=== PATIENT | male | born 1945 | race Caucasian/White ===

== ENCOUNTER 2019-07-01 12:45 | Emergency (ER) | payer MEDICARE, OTHER ==
[~2019-07-01] VITALS: Ht 172.7 cm; Wt 68.8 kg
[2019-07-01 12:55] VITALS: BP 102/63
--- NOTE | 2019-07-01 13:15 | RAD ---
CHEST AP ONLY History: Facial droop Comparison: None. Findings: Single view of the chest is submitted. There is prominent infiltrate of the mid to superior left hemithorax. There is emphysema. There is no dependent pleural fluid or pneumothorax. Cardiac silhouette is borderline in size. Impression: 1. There is prominent infiltrate of the mid to superior left hemithorax for which short-term follow-up after treatment within 1-2 months advised. There is emphysema. Electronically signed by: Laureano Combs MD (07/01/2019 1:12 PM) [facility]
--- NOTE | 2019-07-01 13:18 | RAD ---
CT CODE STROKE HEAD WO dated 07/01/2019 12:47 PM Indication: Facial droop... Comparison: No comparison is available. Technique: Contiguous axial imaging the head was performed from skull base to vertex. No contrast administered. One or more of the following individualized dose reduction techniques were utilized for this examination: 1. Automated exposure control 2. Adjustment of the mA and/or kV according to patient size 3. Use of iterative reconstruction technique One or more of the following individualized dose reduction techniques were utilized for this examination: 1. Automated exposure control 2. Adjustment of the mA and/or kV according to patient size 3. Use of iterative reconstruction technique Findings: Ventricles and sulci are moderately prominent for age. No midline shift or mass effect. Mild patchy low density in the deep/subcortical periventricular white matter and central evan. No hemorrhage or extra-axial collection. Posterior fossa otherwise unremarkable. No hyperdense vessels are seen. Complete opacification of the bilateral maxillary sinus and anterior ethmoid air cells on the right with complete opacification of the right frontal sinus. There is some high density within the opacified sinuses. No bone destruction. Mastoid air cells are clear. No apparent calvarial abnormality. IMPRESSION: 1. No evidence of acute intracranial hemorrhage or mass. 2. Mild chronic small vessel ischemic changes in the deep/subcortical periventricular white matter and central evan. Superimposed acute small vessel ischemia cannot be excluded. If indicated, MRI would better evaluate. 3. Paranasal sinus disease as described above. Results discussed with ER physician at approximately 1:14 PM on the day of the study. FOR INTERNAL CODING PURPOSES Critical result: Findings discussed with ER physician at 07/01/2019 1:14 PM. RESULT CODE: (C) results Electronically signed by: Gerald Parker MD (07/01/2019 1:15 PM) [facility] [place]
--- NOTE | 2019-07-01 13:26 | PHYS DOC ---
Adult General Chief Complaint Chief Complaint: NEURO SYMPTOMS/DEFICITS [facility] HPI 73-year-old male presents via EMS as a code stroke. His last known well was 11:50 AM. The patient started to have some right upper extremity weakness and some word finding difficulty. His noticed these changes. The patient tells me that he has had some intermittent right arm weakness over the last month. He thinks it comes and goes. His told EMS that she has been noticing some signs of possible early dementia. The patient is a longtime smoker. He denies history of stroke. Today he basically went outside to smoke a cigarette and while he was out there he began to feel weak. He went inside and sat down and that is when his noticed he was acting different. Patient denies feeling ill prior to this episode. Denies fever chills. Review of Systems Review of Systems Constitutional: Denies fever or chills [] Eyes: Denies change in visual acuity, redness, or eye pain [] HENT: Denies nasal congestion or sore throat [] Respiratory: Denies cough or shortness of breath [] Cardiovascular: No additional information not addressed in HPI [] GI: Denies abdominal pain, nausea, vomiting, bloody stools or diarrhea [] : Denies dysuria or hematuria [] Musculoskeletal: Denies back pain or joint pain [] Integument: Denies rash or skin lesions [] Neurologic: Denies headache or sensory changes. right arm weakness [] Endocrine: Denies polyuria or polydipsia [] All other systems were reviewed and found to be within normal limits, except as documented in this note. Physical Exam Physical Exam Constitutional: Well developed, well nourished, no acute distress, non-toxic appearance. [] HENT: Normocephalic, atraumatic, bilateral external ears normal, oropharynx moist, no oral exudates, nose normal. [] Eyes: PERRLA, EOMI, conjunctiva normal, no discharge. [] Neck: Normal range of motion, no tenderness, supple, no stridor. [] Cardiovascular: Heart rate regular rhythm, no murmur [] Lungs & Thorax: Bilateral breath sounds clear to auscultation [] Abdomen: Bowel sounds normal, soft, no tenderness, no masses, no pulsatile masses. [] Skin: Warm, dry, no erythema, no rash. [] Back: No tenderness, no CVA tenderness. [] Extremities: No tenderness, no cyanosis, no clubbing, ROM intact, no edema. [] Neurologic: Right upper extremity weakness, see NIHSS [] Psychologic: Affect normal, judgement normal, mood normal. [] Current Patient Data Lab Results Laboratory Tests Test 07/01/19 13:10 Glucose (Fingerstick) 144 mg/dL (70-99) H EKG EKG Irregular rhythm, rate 70, normal axis, no ST elevation or depression. A. fib. [] Radiology/Procedures Radiology/Procedures [] Impressions: CT CODE STROKE HEAD WO dated 07/01/2019 12:47 PM Indication: Facial droop... Comparison: No comparison is available. Technique: Contiguous axial imaging the head was performed from skull base to vertex. No contrast administered. One or more of the following individualized dose reduction techniques were utilized for this examination: 1. Automated exposure control 2. Adjustment of the mA and/or kV according to patient size 3. Use of iterative reconstruction technique One or more of the following individualized dose reduction techniques were utilized for this examination: 1. Automated exposure control 2. Adjustment of the mA and/or kV according to patient size 3. Use of iterative reconstruction technique Findings: Ventricles and sulci are moderately prominent for age. No midline shift or mass effect. Mild patchy low density in the deep/subcortical periventricular white matter and central evan. No hemorrhage or extra-axial collection. Posterior fossa otherwise unremarkable. No hyperdense vessels are seen. Complete opacification of the bilateral maxillary sinus and anterior ethmoid air cells on the right with complete opacification of the right frontal sinus. There is some high density within the opacified sinuses. No bone destruction. Mastoid air cells are clear. No apparent calvarial abnormality. IMPRESSION: 1. No evidence of acute intracranial hemorrhage or mass. 2. Mild chronic small vessel ischemic changes in the deep/subcortical periventricular white matter and central evan. Superimposed acute small vessel ischemia cannot be excluded. If indicated, MRI would better evaluate. 3. Paranasal sinus disease as described above. Results discussed with ER physician at approximately 1:14 PM on the day of the study. FOR INTERNAL CODING PURPOSES Critical result: Findings discussed with ER physician at 07/01/2019 1:14 PM. RESULT CODE: (C) results Electronically signed by: Gerald Parker MD (07/01/2019 1:15 PM) [facility] [place] DICTATED AND SIGNED BY: GERALD PARKER MD DATE: 07/01/191314 CC: GEORGIA LESLIE DO; PCP,NO ~ CHEST AP ONLY History: Facial droop Comparison: None. Findings: Single view of the chest is submitted. There is prominent infiltrate of the mid to superior left hemithorax. There is emphysema. There is no dependent pleural fluid or pneumothorax. Cardiac silhouette is borderline in size. Impression: 1. There is prominent infiltrate of the mid to superior left hemithorax for which short-term follow-up after treatment within 1-2 months advised. There is emphysema. Electronically signed by: Patrica Hines MD (07/01/2019 1:12 PM) [facility] DICTATED AND SIGNED BY: PATRICA HINES MD DATE: 07/01/19 131 CC: GEORGIA LESLIE DO; PCP,NO ~ Course & Med Decision Making Course & Med Decision Making Pertinent Labs and Imaging studies reviewed. (See chart for details) The patient's labs are unremarkable except for some mild anemia. His EKG does not show definitive P waves. It is irregularly irregular. Rate is controlled at 70. His chest x-ray is significant for pneumonia. We will treat him with azithromycin and Rocephin. And admit him to the hospital. The patient has refused to be admitted to the hospital. He appears to be of sound mind. His came back and talk to him and he is adamant that he is going to go home. I do not like the idea, but he is able to make that choice for himself. I have commenced him to get his IV antibiotics prior to discharge. I will discharge him with an additional 4 days of azithromycin. He will be discharged as requested. [] Dragon Disclaimer Dragon Disclaimer This electronic medical record was generated, in whole or in part, using a voice recognition dictation system. NIH Stroke Scale: NIH Stroke Scale Response (Comments) Value Level of Consciousness: 0 Alert/Responsive 0 LOC Questions: 0 Answers both correctly 0 LOC Commands: 0 Performs both tasks 0 Best Gaze: 0 Normal 0 Visual: 0 No visual loss 0 Facial Palsy: 0 Normal, symmetrical 0 Motor - Left Arm 0 No drift 0 Motor - Right Arm 2 Some effort 2 Motor - Left Leg 0 No drift 0 Motor: Right Leg 0 No drift 0 Limb Ataxia: 0 Absent 0 Sensory: 0 No loss 0 Best Language: 1 Mild to mod aphasia 1 Dysathria: 0 Normal 0 Extinction and Inattention: 0 Normal 0 Total 3 Departure Departure: Impression: Primary Impression: Left upper lobe pneumonia Additional Impression: Stroke-like symptoms Disposition: 01 HOME, SELF-CARE Admitting Physician: Toña Arthur Condition: GUARDED Referrals: PCP,NO (PCP) Patient Instructions: Pneumonia, Adult, [id number] Problem Qualifiers Primary Impression: Left upper lobe pneumonia Pneumonia type: due to unspecified organism Qualified Codes: J18.9 - Pneumonia, unspecified organism GEORGIA LESLIE DO Jul 01, 2019 13:26
[2019-07-01 13:34] LABS: HEMATOCRIT 37.8 % (39.0-53.0); HEMOGLOBIN 12.7 g/dL (13.0-17.5); RED CELL DISTRIBUTION WIDTH 14.6 % (11.5-14.5); WHITE BLOOD COUNT 7.2 x10^3/uL (4.0-11.0)
[2019-07-01 13:39] LABS: CREATININE 0.6 mg/dL (0.7-1.3); GFR 132.8; POTASSIUM 3.9 mmol/L (3.5-5.1)
[2019-07-01] MEDS ORDERED: AZITHROMYCIN 500 MG in IV NORMAL SALINE 250ML 250 ML IV ONE (14:30)
[2019-07-01] MEDS ORDERED: IV NORMAL SALINE 50ML 50 ML ONE (15:03)
[2019-07-01] MEDS ORDERED: cefTRIAXone SODIUM 1 GM VIAL ONE (15:03)
[2019-07-01] MEDS ORDERED: AZIT250T6 PO (15:05)
[2019-07-01] MEDS ORDERED: AZITHROMYCIN 250 MG TABLET. PO ONE (15:15)
--- NOTE | 2019-07-01 20:08 | EKG ---
[address] [address] Test Date: 2019-07-01 Test Time: 13:06:58 Pat Name: HEATHER GIRON Department: Room: Gender: M Operations Manager Station: : [id number] Requested By: GEORGIA LESLIE Order Number: [id number] Reading MD: Measurements Intervals [place] Rate: 70 P: KS: QRS: 63 QRSD: 104 T: -43 QT: 382 QTc: 415 Interpretive Statements IRREGULAR RHYTHM, NO P-WAVE FOUND T ABNORMALITY IN INFERIOR LEADS ABNORMAL ECG RI6.01 No previous ECG available for comparison
== END 2019-07-01 15:35 | disposition home or self-care (01) ==
LOC: ER 12:45
DX: J18.1 Lobar pneumonia, unspecified organism (principal); R53.1 Weakness; R29.810 Facial weakness; F17.200 Nicotine dependence, unspecified, uncomplicated
CPT/HCPCS: 36415; 70450; 71045; 80048; 82947; 85027; 85610; 85730; 93005; 96374; 99285; J0456; J0696